=== PATIENT | female | born 1995 | race Caucasian/White ===

== ENCOUNTER 2020-04-17 14:42 | Inpatient (IN) | payer BC ==
[2020-04-17] MEDS ORDERED: Nalbuphine 10 MG/ML Syringe IVPUSH PRN (14:55)
[2020-04-17] MEDS ORDERED: Sodium Chloride 0.9% 10 ML Syringe FLUSH PRN (14:55)
[2020-04-17] MEDS ORDERED: Oxytocin/Lactated Ringers 10 UNIT/1,000 ML BAG IV SCH ×2 (15:00)
[2020-04-17] MEDS: Lactated Ringers 1,000 ML IV SCH ×3 (15:58→19:25)
[2020-04-17] MEDS ORDERED: ePHEDrine 50 MG/ML SDV IVPUSH PRN (19:04)
[2020-04-17] MEDS ORDERED: Ondansetron 4 MG/2 ML SDV IVPUSH PRN (19:04)
[2020-04-17] MEDS ORDERED: fentaNYL 100 MCG/2 ML SDV EPIDUR PRN (19:04)
--- NOTE | 2020-04-17 19:06 | PCM.PREANE ---
Preanesthetic Assessment - Anesthesia/Transfusion/Family Hx Anesthesia History: Prior Anesthesia Without Reaction Family History of Anesthesia Reaction: No Transfusion History: No Prior Transfusion(s) Intubation History: Unknown - Review of Systems General: No Symptoms Pulmonary: No Symptoms Cardiovascular: No Symptoms Gastrointestinal: No Symptoms Neurological: No Symptoms Other: Reports: None - Physical Assessment NPO Status Date: 04/17/20 NPO Status Time: 19:00 Vital Signs: Last Vital Signs Temp 36.9 C 04/17/20 14:55 Pulse 92 04/17/20 14:55 Resp 16 04/17/20 14:55 BP 125/75 04/17/20 14:55 Pulse Ox Height: 1.75 m Weight: 92.76 kg ASA Class: 2 Mental Status: Alert & Oriented x3 Airway Class: Mallampati = 2 Dentition: Reports: Normal Dentition (Top permanant retainer), Caries Thyro-Mental Finger Breadths: 3 Mouth Opening Finger Breadths: 3 ROM/Head Extension: Full Lungs: Clear to Auscultation, Normal Respiratory Effort Cardiovascular: Regular Rate, Regular Rhythm, No Murmurs - Lab Values: Laboratory Last Values WBC 14.60 K/mm3 (3.98-10.04) H 04/17/20 15:08 RBC 4.32 M/mm3 (3.98-5.22) 04/17/20 15:08 Hgb 12.2 gm/dl (11.2-15.7) 04/17/20 15:08 Hct 37.5 % (34.1-44.9) 04/17/20 15:08 MCV 86.8 fl (79.4-94.8) 04/17/20 15:08 MCH 28.2 pg (25.6-32.2) 04/17/20 15:08 MCHC 32.5 g/dl (32.2-35.5) 04/17/20 15:08 RDW Std Deviation 40.6 fL (36.4-46.3) 04/17/20 15:08 Plt Count 343 K/mm3 (182-369) 04/17/20 15:08 MPV 9.6 fl (9.4-12.3) 04/17/20 15:08 Neut % (Auto) 77.5 % (34.0-71.1) H 04/17/20 15:08 Lymph % (Auto) 13.4 % (19.3-51.7) L 04/17/20 15:08 [place] % (Auto) 7.6 % (4.7-12.5) 04/17/20 15:08 Eos % (Auto) 0.7 (0.7-5.8) 04/17/20 15:08 Baso % (Auto) 0.1 % (0.1-1.2) 04/17/20 15:08 Neut # (Auto) 11.31 K/mm3 (1.56-6.13) H 04/17/20 15:08 Lymph # (Auto) 1.96 K/mm3 (1.18-3.74) 04/17/20 15:08 [place] # (Auto) 1.11 K/mm3 (0.24-0.36) H 04/17/20 15:08 Eos # (Auto) 0.10 K/mm3 (0.04-0.36) 04/17/20 15:08 Baso # (Auto) 0.02 K/mm3 (0.01-0.08) 04/17/20 15:08 SARS-CoV-2 RNA (NIKKY) Negative (NEGATIVE) 04/17/20 15:29 Blood Type O POSITIVE 04/17/20 15:08 Gel Antibody Screen Negative 04/17/20 15:08 Above labs reviewed and noted and within acceptable ranges to proceed with epidural. 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 USE Smoking Status *Q: Never Smoker Second Hand Smoke Exposure: No Recreational Drug Use History: No - HOME MEDS Home Medications: Home Meds Vits #93/Iron Fum/FA [ Formula Tablet] 1 each PO DAILY 04/17/20 [History] - CURRENT (IN HOUSE) MEDS Current Meds: Current Medications Ephedrine Sulfate (Ephedrine Sulfate) 5 mg IVPUSH ASDIRECTED PRN PRN Reason: Hypotension Fentanyl (Sublimaze) 100 mcg EPIDUR Q3H PRN PRN Reason: Pain Fentanyl/Bupivacaine HCl (Fentanyl/Bupivacaine/Ns 2 Mcg-0.125% 100 Ml) 100 ml EPIDUR ASDIRECTED JEFFRY Oxytocin/Lactated Ringer's (Pitocin In Lr 10 Units/1,000 Ml) 10 unit in 1,000 mls @ 12 mls/hr IV TITRATE JEFFRY; Protocol Last Titration: 04/17/20 16:30 Dose: 4 munits/min, 24 mls/hr Documented by: Oxytocin/Lactated Ringer's (Pitocin In Lr 10 Units/1,000 Ml) 10 unit in 1,000 mls @ 500 mls/hr IV .CONTINUOUS JEFFRY Lactated Ringer's (Ringers, Lactated) 1,000 mls @ 100 mls/hr IV ASDIRECTED JEFFRY Last Admin: 04/17/20 16:41 Dose: 100 mls/hr Documented by: Miscellaneous Medication (Phenylephrine 1 Mg/10 Ml-Ns) 0 mg IVPUSH ONETIME ONE Stop: 04/17/20 19:05 Nalbuphine HCl (Nubain) 10 mg IVPUSH Q2H PRN PRN Reason: Pain Ondansetron HCl (Zofran) 4 mg IVPUSH ONETIME PRN PRN Reason: Nausea/Vomiting Sodium Chloride (Saline Flush) 10 ml FLUSH ASDIRECTED PRN PRN Reason: Keep Vein Open
[2020-04-17] MEDS ORDERED: Bupivacaine/fentaNYL/NS 100 ML Bag EPIDUR SCH (19:15)
[2020-04-18] MEDS ORDERED: Bupivacaine 0.25% 10 ML SDV ONE
[2020-04-18] MEDS: Lactated Ringers 1,000 ML IV SCH (00:24)
--- NOTE | 2020-04-18 00:56 | PCM.LDHP ---
L&D History of Present Illness - General Date of Service: 04/17/20 Admit Problem/Dx: Patient Status Order with Admit Dx/Problem 04/17/20 14:55 Patient Status [ADT] Routine Admission Diagnosis/Problem Admission Diagnosis/Problem - History of Present Illness Introduction:: 24 year old at 39w6d here for induction for elevated blood pressures in clinic and decreased movement. 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 General: Reports: No Symptoms HEENT: Reports: No Symptoms Pulmonary: Reports: No Symptoms Cardiovascular: Reports: No Symptoms Gastrointestinal: Reports: No Symptoms Genitourinary: Reports: No Symptoms Musculoskeletal: Reports: No Symptoms Skin: Reports: No Symptoms Psychiatric: Reports: No Symptoms Neurological: Reports: No Symptoms Hematologic/Lymphatic: Reports: No Symptoms Immunologic: Reports: No Symptoms L&D Exam - Exam Exam: See Below - Vital Signs Vital Signs: Last Vital Signs Temp 36.9 C 04/17/20 14:55 Pulse 92 04/17/20 14:55 Resp 16 04/17/20 14:55 BP 125/75 04/17/20 14:55 Pulse Ox 99 04/17/20 19:04 Weight: 92.76 kg - OB Specific Contraction Intensity: Mild to Moderate Movement: Active Heart Tones: Present Heart Tones per Min: 150 Heart Rate (FHR) Variability: Moderate (6-25 bmp) Presentation: Vertex - Muse Score Muse Score Cervix Position: Anterior Muse Score Consistency: Soft Muse Score Effacement: >80% Muse Score Dilation: 3-4 cm Muse Score Infant's Station: -2 Muse Score Total: 10 - Exam General: Alert, Oriented HEENT: PERRLA, Conjunctiva Clear, EACs Clear, EOMI, Hearing Intact, Mucosa Moist & [place], Nares Patent, Normal Nasal Septum, Posterior Pharynx Clear, TMs Clear Neck: Supple, Trachea Midline Lungs: Clear to Auscultation, Normal Respiratory Effort Cardiovascular: Regular Rate, Regular Rhythm GI/Abdominal Exam: Normal Bowel Sounds, Soft, Non-Tender, No Organomegaly, Other (gravid, EFW 3600) Rectal Exam: Normal Exam Back Exam: Normal Inspection, Full Range of Motion Extremities: Normal Inspection, Normal Range of Motion, Non-Tender, No Pedal Edema, Normal Capillary Refill Skin: Warm, Dry, Intact Neurological: Cranial Nerves Intact, Reflexes Equal Bilateral Psychiatric: Alert, Normal Affect, Normal Mood - Patient Data Lab Results Last 24 hrs: Laboratory Results - last 24 hr 04/17/20 04/17/20 04/17/20 Range/Units 15:08 15:08 15:08 WBC 14.60 H (3.98-10.04) K/mm3 RBC 4.32 (3.98-5.22) M/mm3 Hgb 12.2 (11.2-15.7) gm/dl Hct 37.5 (34.1-44.9) % MCV 86.8 (79.4-94.8) fl MCH 28.2 (25.6-32.2) pg MCHC 32.5 (32.2-35.5) g/dl RDW Std Deviation 40.6 (36.4-46.3) fL Plt Count 343 (182-369) K/mm3 MPV 9.6 (9.4-12.3) fl Neut % (Auto) 77.5 H (34.0-71.1) % Lymph % (Auto) 13.4 L (19.3-51.7) % [place] % (Auto) 7.6 (4.7-12.5) % Eos % (Auto) 0.7 (0.7-5.8) Baso % (Auto) 0.1 (0.1-1.2) % Neut # (Auto) 11.31 H (1.56-6.13) K/mm3 Lymph # (Auto) 1.96 (1.18-3.74) K/mm3 [place] # (Auto) 1.11 H (0.24-0.36) K/mm3 Eos # (Auto) 0.10 (0.04-0.36) K/mm3 Baso # (Auto) 0.02 (0.01-0.08) K/mm3 RPR Non-reactive (NONREACTIVE) SARS-CoV-2 RNA (NIKKY) (NEGATIVE) Blood Type O POSITIVE Gel Antibody Screen Negative 04/17/20 Range/Units 15:29 WBC (3.98-10.04) K/mm3 RBC (3.98-5.22) M/mm3 Hgb (11.2-15.7) gm/dl Hct (34.1-44.9) % MCV (79.4-94.8) fl MCH (25.6-32.2) pg MCHC (32.2-35.5) g/dl RDW Std Deviation (36.4-46.3) fL Plt Count (182-369) K/mm3 MPV (9.4-12.3) fl Neut % (Auto) (34.0-71.1) % Lymph % (Auto) (19.3-51.7) % [place] % (Auto) (4.7-12.5) % Eos % (Auto) (0.7-5.8) Baso % (Auto) (0.1-1.2) % Neut # (Auto) (1.56-6.13) K/mm3 Lymph # (Auto) (1.18-3.74) K/mm3 [place] # (Auto) (0.24-0.36) K/mm3 Eos # (Auto) (0.04-0.36) K/mm3 Baso # (Auto) (0.01-0.08) K/mm3 RPR (NONREACTIVE) SARS-CoV-2 RNA (NIKKY) Negative (NEGATIVE) Blood Type Gel Antibody Screen Result Diagrams: 04/17/20 15:08 Problem List Initiated/Reviewed/Updated: Yes Orders Last 24hrs: Active Orders 24 hr Category Date Time Status Patient Status [ADT] Routine ADT 04/17/20 14:55 Active Activity as Tolerated [RC] PFP Care 04/17/20 14:55 Active Communication Order [RC] ASDIRECTED Care 04/17/20 14:55 Active Heart Tones [RC] ASDIRECTED Care 04/17/20 14:56 Active Non Stress Test [RC] PER UNIT ROUTINE Care 04/17/20 14:55 Active Notify Provider [RC] ASDIRECTED Care 04/17/20 19:04 Active Notify Provider [RC] PFP Care 04/17/20 14:55 Active Notify Provider [RC] PRN Care 04/17/20 14:55 Active Oxygen Therapy [RC] ASDIRECTED Care 04/17/20 19:04 Active Peripheral IV Care [RC] . DIRECTED Care 04/17/20 14:56 Active Pulse Oximetry [RC] ASDIRECTED Care 04/17/20 19:04 Active Vital Signs [RC] PER UNIT ROUTINE Care 04/17/20 14:55 Active Regular Diet [DIET] Diet 04/17/20 Dinner Active Bupivacaine/fentaNYL/NS [fentaNYL/Bupivacaine/NS 2 MCG- Med 04/17/20 19:15 Active 0.125% 100 ML] 100 ml EPIDUR ASDIRECTED Lactated Ringers [Ringers, Lactated] 1,000 ml Med 04/17/20 15:00 Active IV ASDIRECTED Nalbuphine [Nubain] Med 04/17/20 14:55 Active 10 mg IVPUSH Q2H PRN Ondansetron [Zofran] Med 04/17/20 19:04 Active 4 mg IVPUSH ONETIME PRN Oxytocin/Lactated Ringers [Pitocin in LR 10 Units/1,000 Med 04/17/20 15:00 Active ML] 10 unit in 1,000 ml IV .CONTINUOUS Oxytocin/Lactated Ringers [Pitocin in LR 10 Units/1,000 Med 04/17/20 15:00 Active ML] 10 unit in 1,000 ml IV TITRATE Sodium Chloride 0.9% [Saline Flush] Med 04/17/20 14:55 Active 10 ml FLUSH ASDIRECTED PRN ePHEDrine [ePHEDrine sulfate] Med 04/17/20 19:04 Active 5 mg IVPUSH ASDIRECTED PRN fentaNYL [Sublimaze] Med 04/17/20 19:04 Active 100 mcg EPIDUR Q3H PRN Electronic Heart Tones Ext w TOCO [WOMSER] Oth 09/29/20 14:55 Ordered Routine Electronic Heart Tones Internal [WOMSER] Per Unit Oth 04/17/20 14:55 Ordered Routine Peripheral IV Insertion Adult [OM.PC] Routine Oth 04/17/20 14:55 Ordered Resuscitation Status Routine Resus Stat 04/17/20 14:55 Ordered Medication Orders Ephedrine Sulfate (Ephedrine Sulfate) 5 mg IVPUSH ASDIRECTED PRN PRN Reason: Hypotension Fentanyl (Sublimaze) 100 mcg EPIDUR Q3H PRN PRN Reason: Pain Last Admin: 04/17/20 19:23 Dose: 100 mcg Documented by: DUONG Fentanyl/Bupivacaine HCl (Fentanyl/Bupivacaine/Ns 2 Mcg-0.125% 100 Ml) 100 ml EPIDUR ASDIRECTED JEFFRY Last Admin: 04/17/20 19:24 Dose: 100 ml Documented by: DUONG Oxytocin/Lactated Ringer's (Pitocin In Lr 10 Units/1,000 Ml) 10 unit in 1,000 mls @ 12 mls/hr IV TITRATE JEFFRY; Protocol Last Titration: 04/17/20 21:41 Dose: 3 munits/min, 18 mls/hr Documented by: Titration: 04/17/20 16:30 Dose: 4 munits/min, 24 mls/hr Documented by: Admin: 04/17/20 15:59 Dose: 2 munits/min, 12 mls/hr Documented by: KORY Oxytocin/Lactated Ringer's (Pitocin In Lr 10 Units/1,000 Ml) 10 unit in 1,000 mls @ 500 mls/hr IV .CONTINUOUS JEFFRY Lactated Ringer's (Ringers, Lactated) 1,000 mls @ 100 mls/hr IV ASDIRECTED JEFFRY Last Admin: 04/18/20 00:24 Dose: 100 mls/hr Documented by: Infusion: 04/18/20 00:24 Dose: 100 mls/hr Documented by: Admin: 04/17/20 19:25 Dose: 100 mls/hr Documented by: Infusion: 04/17/20 19:25 Dose: 100 mls/hr Documented by: Admin: 04/17/20 16:41 Dose: 100 mls/hr Documented by: Infusion: 04/17/20 16:41 Dose: 100 mls/hr Documented by: [id number] Admin: 04/17/20 15:58 Dose: 100 mls/hr Documented by: [id number] Nalbuphine HCl (Nubain) 10 mg IVPUSH Q2H PRN PRN Reason: Pain Ondansetron HCl (Zofran) 4 mg IVPUSH ONETIME PRN PRN Reason: Nausea/Vomiting Sodium Chloride (Saline Flush) 10 ml FLUSH ASDIRECTED PRN PRN Reason: Keep Vein Open Assessment/Plan Comment:: Term. With decreased movement and mildly elevated blood pressures in clinic. Discussed that with those two things at 39w6 would recommend induction. Discussed even if blood pressures improve IOL prudent given distance from hospital and gestational age especially with decreased movement. States understanding and wishes to proceed. Anesthesia per pt request. AROM clear fluid at 5pm.
--- NOTE | 2020-04-18 01:39 | PCM.SN.2 ---
- Free Text/Narrative Note: Stage I - Patient presented with decreased movement and elevated blood pressures. AROM clear fluid. Progressed to complete with overall reassuring heart tones. Stage II - of viable female, weight 3610, 9/9 APGARS at 0106. Head delivered in controlled manner over intact perineum. Tight nuchal cord. Body and shoulders followed without difficulty. To maternal abdomen. Positive cry. Cord clamped at 1 minute of life. Stage III - of intact placenta. 3vc. EBL 200. 2nd degree and bilateral labial lacerations repaired with 4-0 and 3-0 vicryl.
[2020-04-18] MEDS ORDERED: Witch Hazel Medicated Pads 40/Jar TOP PRN (01:59)
[2020-04-18] MEDS ORDERED: Benzocaine/Menthol 20%-0.5% Spray 56 GM Canister TOP PRN (01:59)
[2020-04-18] MEDS ORDERED: Docusate Sodium 100 MG Cap PO PRN (01:59)
[2020-04-18] MEDS: Ibuprofen 600 MG Tab PO PRN ×3 (05:51→21:13)
--- NOTE | 2020-04-18 07:56 | PCM48HPAN ---
Post Anesthesia Note - EVALUATION WITHIN 48HRS OF ANESTHETIC Vital Signs in Normal Range: Yes Patient Participated in Evaluation: Yes Respiratory Function Stable: Yes Airway Patent: Yes Cardiovascular Function Stable: Yes Hydration Status Stable: Yes Pain Control Satisfactory: Yes Nausea and Vomiting Control Satisfactory: Yes Mental Status Recovered: Yes Vital Signs: Last Vital Signs Temp 37.0 C 04/18/20 03:30 Pulse 77 04/18/20 03:30 Resp 16 04/18/20 03:30 BP 111/63 04/18/20 03:30 Pulse Ox 97 04/18/20 03:30 - COMMENTS/OBSERVATIONS Free Text/Narrative:: no anesthesia complications noted
--- NOTE | 2020-04-19 07:32 | PCM.DCSUM1 ---
Discharge Summary - Hospital Course Diagnosis: Stroke: No - Discharge Data Discharge Date: 04/19/20 Discharge Disposition: Home, Self-Care 01 Condition: Good - Referral to Home Health Primary Care Physician: Karolyn Melo MD - Patient Instructions Diet: Usual Diet as Tolerated Activity: No Strenuous Activities Activity, Other: pelvic rest Driving: May Drive Today Notify Provider of: Fever, Increased Pain, Swelling and Redness, Drainage, Nausea and/or Vomiting - Discharge Plan *PRESCRIPTION DRUG MONITORING PROGRAM REVIEWED*: No *COPY OF PRESCRIPTION DRUG MONITORING REPORT IN PATIENT SHERI: No Home Medications: Home Meds Vits #93/Iron Fum/FA [ Formula Tablet] 1 each PO DAILY 04/17/20 [History] Referrals: Karolyn Melo MD [Primary Care Provider] - - Discharge Summary/Plan Comment DC Time >30 min.: No - General Info Date of Service: 04/19/20 Functional Status: Reports: Pain Controlled - Review of Systems General: Reports: No Symptoms HEENT: Reports: No Symptoms Pulmonary: Reports: No Symptoms Cardiovascular: Reports: No Symptoms Gastrointestinal: Reports: No Symptoms Genitourinary: Reports: No Symptoms Musculoskeletal: Reports: No Symptoms Skin: Reports: No Symptoms Neurological: Reports: No Symptoms Psychiatric: Reports: No Symptoms - Patient Data Vitals - Most Recent: Last Vital Signs Temp 36.6 C 04/18/20 14:58 Pulse 69 04/18/20 21:06 Resp 16 04/18/20 21:06 BP 107/61 04/18/20 21:06 Pulse Ox 97 04/18/20 21:06 Weight - Most Recent: 92.76 kg I&O - Last 24 hours: Intake & Output 04/18/20 04/19/20 04/19/20 22:59 06:59 14:59 Intake Total 240 Balance 240 Med Orders - Current: Current Medications Benzocaine/Menthol (Dermoplast Pain Relief [place]) 0 gm TOP ASDIRECTED PRN PRN Reason: Perineal Comfort Measure Last Admin: 04/18/20 03:15 Dose: 1 can Documented by: Docusate Sodium (Colace) 100 mg PO BID PRN PRN Reason: Constipation Ibuprofen (Motrin) 600 mg PO Q6H PRN PRN Reason: Mild pain or fever Last Admin: 04/18/20 21:13 Dose: 600 mg Documented by: Kae Vergara (Randy) 1 pad TOP ASDIRECTED PRN PRN Reason: Pain Last Admin: 04/18/20 03:14 Dose: 1 canister Documented by: Discontinued Medications Bupivacaine HCl (Sensorcaine-Mpf 0.25%) 10 ml .ROUTE .STK-MED ONE Stop: 04/18/20 00:01 Ephedrine Sulfate (Ephedrine Sulfate) 5 mg IVPUSH ASDIRECTED PRN PRN Reason: Hypotension Fentanyl (Sublimaze) 100 mcg EPIDUR Q3H PRN PRN Reason: Pain Last Admin: 04/17/20 19:23 Dose: 100 mcg Documented by: Fentanyl/Bupivacaine HCl (Fentanyl/Bupivacaine/Ns 2 Mcg-0.125% 100 Ml) 100 ml EPIDUR ASDIRECTED JEFFRY Last Admin: 04/17/20 19:24 Dose: 100 ml Documented by: Oxytocin/Lactated Ringer's (Pitocin In Lr 10 Units/1,000 Ml) 10 unit in 1,000 mls @ 12 mls/hr IV TITRATE JEFFRY; Protocol Last Titration: 04/17/20 21:41 Dose: 3 munits/min, 18 mls/hr Documented by: Oxytocin/Lactated Ringer's (Pitocin In Lr 10 Units/1,000 Ml) 10 unit in 1,000 mls @ 500 mls/hr IV .CONTINUOUS JEFFRY Lactated Ringer's (Ringers, Lactated) 1,000 mls @ 100 mls/hr IV ASDIRECTED JEFFRY Last Admin: 04/18/20 00:24 Dose: 100 mls/hr Documented by: Miscellaneous Medication (Phenylephrine 1 Mg/10 Ml-Ns) 0 mg IVPUSH ONETIME ONE Stop: 04/17/20 19:05 Last Admin: 04/17/20 21:04 Dose: Not Given Documented by: Nalbuphine HCl (Nubain) 10 mg IVPUSH Q2H PRN PRN Reason: Pain Ondansetron HCl (Zofran) 4 mg IVPUSH ONETIME PRN PRN Reason: Nausea/Vomiting Sodium Chloride (Saline Flush) 10 ml FLUSH ASDIRECTED PRN PRN Reason: Keep Vein Open - Exam General: Reports: Alert, Oriented HEENT: Reports: Pupils Equal, Pupils Reactive, EOMI, Mucous Membr. Moist/[place] Neck: Reports: Supple Lungs: Reports: Clear to Auscultation, Normal Respiratory Effort Cardiovascular: Reports: Regular Rate, Regular Rhythm GI/Abdominal Exam: Normal Bowel Sounds, Soft, Non-Tender, No Organomegaly, No Distention, No Abnormal Bruit, No Mass, Pelvis Stable Extremities: Normal Inspection, Normal Range of Motion, Non-Tender, No Pedal Edema, Normal Capillary Refill Wound/Incisions: Reports: Healing Well Neurological: Reports: No New Focal Deficit Psy/Mental Status: Reports: Alert, Normal Affect, Normal Mood
== END 2020-04-19 10:05 | disposition home or self-care (01) | DRG 560 ==
LOC: JD.OBCHECK 14:42 → JD.OB 14:43 → OBSVTOIN 04-18 01:06 → JD.OB 04-18 01:07
PROVIDERS: ADMIT Obstetrics & Gynecology; ATTEND Obstetrics & Gynecology
PROC: 10E0XZZ Delivery of Products of Conception, External Approach (ICD-10-PCS; principal; 2020-04-18)
PROC: 10907ZC Drainage of Amniotic Fluid, Therapeutic from Products of Conception, Via Natural or Artificial Opening (ICD-10-PCS; 2020-04-18)
PROC: 3E033VJ Introduction of Other Hormone into Peripheral Vein, Percutaneous Approach (ICD-10-PCS; 2020-04-18)
PROC: 0KQM0ZZ Repair Perineum Muscle, Open Approach (ICD-10-PCS; 2020-04-18)
PROC: 0UQMXZZ Repair Vulva, External Approach (ICD-10-PCS; 2020-04-18)
PROC: 3E0R3BZ Introduction of Anesthetic Agent into Spinal Canal, Percutaneous Approach (ICD-10-PCS; 2020-04-18)
PROC: 00HU33Z Insertion of Infusion Device into Spinal Canal, Percutaneous Approach (ICD-10-PCS; 2020-04-18)
DX: O36.8130 Decreased fetal movements, third trimester, not applicable or unspecified (principal); Z3A.39 39 weeks gestation of pregnancy; Z37.0 Single live birth; O69.1XX0 Labor and delivery complicated by cord around neck, with compression, not applicable or unspecified; O70.1 Second degree perineal laceration during delivery; Z20.828 Contact with and (suspected) exposure to other viral communicable diseases
CPT/HCPCS: 01967; 36415; 51702; 59025; 59409; 85025; 86592; 86850; 86900; 86901; A9270-GY; J2590; J3010; J3490; J7120; U0002

== ENCOUNTER 2021-12-16 13:44 | Inpatient (IN) | payer BC ==
[~2021-12-16 13:44] MED LIST: Bupivacaine 0.25% 10 ML SDV ONE
[2021-12-16] MEDS ORDERED: Nalbuphine HCl 10 MG/ 1ML Amp IVPUSH PRN (15:46)
[2021-12-16] MEDS ORDERED: Oxytocin/Lactated Ringers 10 UNIT/1,000 ML BAG IV SCH ×2 (16:00)
[2021-12-16] MEDS: Lactated Ringers 1,000 ML IV SCH ×2 (16:00→17:04)
[2021-12-16] MEDS ORDERED: fentaNYL 100 MCG/2 ML SDV EPIDUR PRN (16:28)
[2021-12-16] MEDS ORDERED: diphenhydrAMINE 50 MG/ML SDV IVPUSH PRN (16:28)
[2021-12-16] MEDS ORDERED: Bupivacaine/fentaNYL/NS 100 ML Bag EPIDUR PRN (16:28)
[2021-12-16] MEDS ORDERED: ePHEDrine 50 MG/ML SDV IVPUSH PRN (16:28)
[2021-12-16] MEDS ORDERED: Acetaminophen 325 MG Tab PO ONE (20:39)
[2021-12-16] MEDS ORDERED: Benzocaine/Menthol 20%-0.5% Spray 78 GM Cannister TOP PRN (23:14)
[2021-12-16] MEDS ORDERED: Docusate Sodium 100 MG Cap PO PRN (23:14)
[2021-12-16] MEDS ORDERED: Acetaminophen 325 MG Tab PO PRN (23:14)
[2021-12-16] MEDS ORDERED: Witch Hazel Medicated Pads 40/Jar TOP PRN (23:14)
[2021-12-17] MEDS ORDERED: Lactated Ringers 1,000 ML ONE (00:17)
[2021-12-17] MEDS: Ibuprofen 600 MG Tab PO PRN ×2 (04:26→11:21)
== END 2021-12-17 11:30 | disposition home or self-care (01) | DRG 560 ==
LOC: JD.OBCHECK 13:44 → JD.OB 13:55 → JD.OBCHECK 16:15 → JD.OB 16:16 → OBSVTOIN 22:10 → JD.OB 22:11
PROVIDERS: ADMIT Obstetrics & Gynecology; ATTEND Obstetrics & Gynecology
PROC: 10E0XZZ Delivery of Products of Conception, External Approach (ICD-10-PCS; principal; 2021-12-16)
PROC: 3E0R3BZ Introduction of Anesthetic Agent into Spinal Canal, Percutaneous Approach (ICD-10-PCS; principal; 2021-12-16)
PROC: 10907ZC Drainage of Amniotic Fluid, Therapeutic from Products of Conception, Via Natural or Artificial Opening (ICD-10-PCS; principal; 2021-12-16)
DX: O76 Abnormality in fetal heart rate and rhythm complicating labor and delivery (principal); Z37.0 Single live birth; Z3A.38 38 weeks gestation of pregnancy
CPT/HCPCS: 01967; 36415; 51702; 59025; 59409; 85025; 86592; 86850; 86900; 86901; A9270-GY; J2590; J3010; J3490; J7120

== ENCOUNTER 2023-01-14 11:39 | Emergency (ER) | payer BC ==
[2023-01-14 13:14] LABS: APPEARANCE,URINE CLEAR (Clear); BILIRUBIN,URINE NEGATIVE (Negative); COLOR,URINE YELLOW (Yellow); GLUCOSE,URINE NEGATIVE (Negative); KETONES,URINE 2+ (Negative); LEUKOCYTE ESTERASE,URINE TRACE (Negative); NITRITE,URINE NEGATIVE (Negative); OCCULT BLOOD,URINE TRACE-INTACT (Negative); PROTEIN,URINE NEGATIVE (Negative); UROBILINOGEN,URINE 0.2 (0.2-1.0)
[2023-01-14 13:25] LABS: BACTERIA,URINE FEW /hpf (FEW); MUCUS,URINE MODERATE /hpf (FEW)
[2023-01-14] MEDS ORDERED: Pantoprazole 40 MG Vial IVPUSH ONE (13:36)
[2023-01-15 12:07] LABS: WBC,URINE 0-5 /hpf (0-5)
== END 2023-01-14 14:41 | disposition home or self-care (01) ==
LOC: JD.ED 11:39
DX: K29.50 Unspecified chronic gastritis without bleeding (principal); Z91.011 Allergy to milk products
CPT/HCPCS: 81001; 81025; 87086; 96374; 99284; C9113

== ENCOUNTER 2024-08-02 23:24 | Inpatient (IN) | payer BC ==
[2024-08-03] MEDS ORDERED: Nalbuphine 10 MG/1 ML Vial IVPUSH PRN (04:54)
[2024-08-03] MEDS ORDERED: Calcium Carbonate 500 MG Tab.Chew PO PRN (04:54)
[2024-08-03] MEDS ORDERED: Lidocaine 1% 50 ML MDV INJECT PRN (04:54)
[2024-08-03] MEDS: Lactated Ringers 1,000 ML IV SCH (05:11)
[2024-08-03] MEDS: Ampicillin 2 GM in Sodium Chloride 0.9% 100 ML IV ONE (05:12)
[2024-08-03 05:28] LABS: BASOPHILS PERCENT AUTO 0.3 % (0.0-1.0); EOSINOPHILS ABSOLUTE AUTO 0.1 K/mm3 (0.0-0.4); EOSINOPHILS PERCENT AUTO 0.6 % (0.0-6.0); HEMATOCRIT 37.7 % (37.0-47.0); HEMOGLOBIN 12.4 gm/dl (12.0-16.0); IMMATURE GRAN PERCENT AUTO 0.7 % (0.0-0.4); LYMPHOCYTES ABSOLUTE AUTO 2.5 K/mm3 (1.0-4.8); LYMPHOCYTES PERCENT AUTO 17.5 % (24.0-44.0); MEAN CORPUSCULAR HEMOGLOBIN 28.2 pg (28.0-32.0); MEAN CORPUSCULAR HGB CONC 32.9 g/dl (32.0-36.0); MEAN CORPUSCULAR VOLUME 85.7 fl (83.0-99.0); MONOCYTES ABSOLUTE AUTO 0.8 K/mm3 (0.0-0.8); MONOCYTES PERCENT AUTO 5.3 % (0.0-8.0); NEUTROPHILS ABSOLUTE AUTO 10.6 K/mm3 (1.8-7.7); NEUTROPHILS PERCENT AUTO 75.6 % (41.0-71.0); PLATELET COUNT,PLT 240 K/mm3 (150-400); WHITE BLOOD CELL COUNT,WBC 14.02 K/mm3 (3.9-11.3)
[2024-08-03] MEDS: Oxytocin/0.9 % Sodium Chloride 30 UNIT/500 ML BAG IV SCH ×2 (07:22→15:08)
[2024-08-03] MEDS: Ampicillin 1 GM in Sodium Chloride 0.9% 100 ML IV SCH (08:55)
[2024-08-03] MEDS ORDERED: ePHEDrine 50 MG/ML SDV IVPUSH PRN (09:16)
[2024-08-03] MEDS ORDERED: diphenhydrAMINE 50 MG/ML SDV IVPUSH PRN (09:16)
[2024-08-03] MEDS ORDERED: fentaNYL 100 MCG/2 ML SDV ONE (09:30)
[2024-08-03] MEDS: fentaNYL 100 MCG/2 ML SDV EPIDUR PRN (09:30)
[2024-08-03] MEDS: Bupivacaine/fentaNYL/NS 100 ML Bag EPIDUR PRN (09:46)
[2024-08-03] MEDS: Ondansetron 4 MG/2 ML SDV IVPUSH PRN (10:19)
[2024-08-03] MEDS: Methylergonovine 0.2 MG/1 ML Amp IM PRN (14:57)
[2024-08-03] MEDS ORDERED: Oxytocin/0.9 % Sodium Chloride 30 UNIT/500 ML BAG IV SCH (15:00)
[2024-08-03] MEDS: Benzocaine/Menthol 20%-0.5% Spray 78 GM Cannister TOP PRN (15:14)
[2024-08-03] MEDS: Witch Hazel Medicated Pads 40/Jar TOP PRN (15:14)
[2024-08-03] MEDS: Methylergonovine 0.2 MG/1 ML Amp ONE (17:18)
[2024-08-03] MEDS: Acetaminophen 325 MG Tab PO SCH ×2 (17:21→23:49)
[2024-08-03] MEDS: Ibuprofen 600 MG Tab PO PRN (20:32)
[2024-08-03] MEDS: Docusate Sodium 100 MG Cap PO PRN (20:32)
[2024-08-03] MEDS: Sodium Chloride 0.9% 10 ML Syringe FLUSH SCH (22:01)
== END 2024-08-04 15:00 | disposition home or self-care (01) | DRG 560 ==
LOC: JD.OBCHECK 23:24 → JD.OB 23:32 → JD.OBCHECK 08-03 04:55 → JD.OB 08-03 05:03 → OBSVTOIN 08-03 13:44 → JD.OB 08-03 13:45
PROVIDERS: ADMIT Obstetrics & Gynecology; ATTEND Obstetrics & Gynecology
PROC: 10E0XZZ Delivery of Products of Conception, External Approach (ICD-10-PCS; principal; 2024-08-03)
PROC: 10907ZC Drainage of Amniotic Fluid, Therapeutic from Products of Conception, Via Natural or Artificial Opening (ICD-10-PCS; 2024-08-03)
PROC: 3E0R3BZ Introduction of Anesthetic Agent into Spinal Canal, Percutaneous Approach (ICD-10-PCS; 2024-08-03)
PROC: 00HU33Z Insertion of Infusion Device into Spinal Canal, Percutaneous Approach (ICD-10-PCS; 2024-08-03)
DX: O99.824 Streptococcus B carrier state complicating childbirth (principal); Z37.0 Single live birth; Z3A.39 39 weeks gestation of pregnancy
CPT/HCPCS: 36415; 51701; 59025; 59409; 85025; 86592; A9270-GY; C1758; J0290; J2210; J2405; J3010; J3490; J7120; J7999